=== PATIENT | male | born 1955 | race Caucasian/White ===

== ENCOUNTER 2022-12-03 18:30 | Inpatient (IN) | payer MEDICARE, OTHER, SELFPAY ==
[2022-12-03] VITALS (16 sets, daily range): BP systolic 104–142; BP diastolic 57–92; PULSE 110–143; RESP 16–40; TEMP 36.4–38.7; O2SAT 94–97; BMI 33.4; BMI 33.3; BMI 26.7
--- NOTE | 2022-12-03 18:15 | XR_ITS ---
PROCEDURE INFORMATION: Exam: XR Chest Exam date and time: 12/03/2022 6:34 PM Age: 66 years old Clinical indication: Angina; Other: Generalized; Patient HX: Chest pain and shortness of breath with cough. TECHNIQUE: Imaging protocol: Radiologic exam of the chest. Views: 1 view. COMPARISON: No relevant prior studies available. FINDINGS: Lungs: Infiltrate in the left perihilar region extending to the left lower lobe. Pleural spaces: Unremarkable. No pleural effusion. No pneumothorax. Heart/Mediastinum: Unremarkable. No cardiomegaly. Diaphragm: The right hemidiaphragm is moderately elevated. Bones/joints: Asymmetric marked arthritis left glenohumeral joint. IMPRESSION: Left perihilar and lower lobe infiltrate, suspicious for pneumonia.
--- NOTE | 2022-12-03 18:20 | ECG_ITS ---
APPROVED REPORT Exam: Resting ECG HR:136 bpm ECG Measurements Heart Rate 136 AXES PA 136 P 40 QRSd 91 QRS 75 QT 303 T 62 QTc 383 Conclusion SINUS TACHYCARDIA WITH OCCASIONAL ECTOPIC PREMATURE COMPLEXES MODERATE ST DEPRESSION [0.05+ mV ST DEPRESSION] ABNORMAL ECG UNCONFIRMED REPORT Electronically signed by : Jonathan Shukla MD 12/04/2022 14:21:30
[2022-12-03 18:28] LABS: Chloride 100 mmol/L (98-107); Potassium 4.2 mmoL/L (3.5-5.1); Sodium 136 mmol/L (136-145)
[2022-12-03 18:31] LABS: Anion Gap 21.2 mEq/L (5-15); Blood Urea Nitrogen 27 mg/dl (9-20); Calcium 9.1 mg/dl (8.4-10.2); Carbon Dioxide 19 mmol/L (22.0-30.0); Creatinine Clearance Estimated 53 mL/min (50-200); Estimated Glomerular Filt Rate 35 ml/min (>60); GFR (African American) 43 ML/MIN (>60); Glucose 283 mg/dl (74-100)
--- NOTE | 2022-12-03 18:33 | HMH.PHAINT ---
Spoke to [facility] for dosing. Vancomycin 2g placed to MAR per pharmacist
[2022-12-03 18:36] LABS: Magnesium 2.1 mg/dl (1.6-2.3)
[2022-12-03 18:40] LABS: Basophils # 0.1 K/mm3 (0-0.2); Basophils % 0.3 % (0.1-2.0); Eosinophils % 0.2 % (0.1-12.0); Hematocrit 49.1 % (42.0-52.0); Lymphocytes # 0.7 K/mm3 (0.7-4.5); Lymphocytes % 3.3 % (10-50); Mean Corpuscular HGB Conc 32.6 g/dL (31.8-35.4); Mean Corpuscular Hemoglobin 34.8 pg (27.0-31.2); Mean Corpuscular Volume 106.6 fl (80-94); Mean Platelet Volume 8.9 fl (7.4-10.4); Monocytes # 0.9 K/mm3 (0.1-1.0); Monocytes % 4.2 % (1.7-9.3); NT Pro Brain Natriuretic Pep. 641 pg/mL (0-125); Neutrophils # 18.7 K/mm3 (1.8-7.8); Platelet Count 306 K/mm3 (142-424); Red Blood Count 4.61 M/mm3 (4.60-6.20); Red Cell Distribution Width 12.4 % (11.5-17.5); White Blood Count 20.4 K/mm3 (4.8-10.8)
[2022-12-03 18:40] LABS: Coronavirus 19, PCR Not Detected (NotDetected); Influenza A, PCR Not Detected (NotDetected); Influenza B, PCR Not Detected (NotDetected)
[2022-12-03 18:42] LABS: MANUAL DIFFERENTIAL MANUAL DIFFERENTIAL (MANUAL DIFF)
[2022-12-03 18:43] LABS: Troponin I 0.03 ng/ml (0.00-0.034)
[2022-12-03 19:10] LABS: ABG Base Excess -5.3 mmol/L (-2.4-2.3); ABG Oxygen Saturation 99 % (90-100); ABG PCO2 35.4 mmhg (35.0-45.0); ABG PH 7.37 mmol/L (7.35-7.45); ABG PO2 123.4 mmhg (80-100); ABG TCO2 21.1 mmhg (23-27); Oxygen 100 %
[2022-12-03 19:11] LABS: Allen's Test Acceptable; Source Left Radial
--- NOTE | 2022-12-03 19:15 | PC.NURSE ---
Pt signed [facility] refusal [facility], pt advised he Didn't think he could make the trip
[2022-12-03 19:21] LABS: Alanine Aminotransferase 33 U/L (12-78); Alkaline Phosphatase 121 U/L (38-126); Aspartate Amino Transferase 39 U/L (17-59); Bilirubin,Direct 0.6 mg/dl (0.0-0.4); Bilirubin,Indirect 0.3 mg/dL (0.0-0.9); Bilirubin,Total 0.9 mg/dl (0.2-1.3); Bilirubin,Unconjugated 0.3 mg/dL (0.0-1.1)
--- NOTE | 2022-12-03 19:21 | PC.NURSE ---
Jermaine called for bed assignment
[2022-12-03 19:22] LABS: Albumin Level 3.6 g/dl (3.5-5.0); Total Protein,Serum 6.4 g/dl (6.3-8.2)
--- NOTE | 2022-12-03 19:22 | PC.NURSE ---
Hospitalist, Jaime, at BS
--- NOTE | 2022-12-03 19:29 | PC.NURSE ---
Jaime notified of [facility] of 5 and verified bed assignment
[2022-12-03 19:36] LABS: Lymphocytes % 11 % (10-50); Monocytes % 3 % (2-9); Neutrophils % 86 % (42-76); Platelet Estimate Normal; RBC Morphology Normal; Total Cells Counted 100
--- NOTE | 2022-12-03 19:42 | EXP.HP ---
History of Present Illness *Admission Date: 12/03/22 *Reason for visit:: Shortness of air, weakness, body aches and chills *History of present illness: Mr. Pantoja is a 66-year-old male with a past medical history of throat and lung cancer s/p robotic surgery and Tracheostomy at [facility], DM, HTN, BPH and Hypothyroidism. He presented to [facility] by EMS due to complaints of progressive weakness, shortness of air, body aches and chills x > 1 week duration. The information for the history and physical was taken from the patient's grand daughter Pauline who was at bedside and is the patient's next of kin. She reports that the patient has been ill for > 1 week with shortness of air, mucus via trach site increasing, weakness and chills and body aches. She reports that the patient refused to come to the ER until today. She reports that the day prior to presentation that the patient was unable to eat due to being ill. In the ER upon presentation the patient was found to have a Temperature of 101.6, HR was 143, RR 24, WBC was 20.4, on Cxray there was an infiltrate in the left perihilar region extending to the left lower lobe. While in the ER the patient had blood cultures x 2 drawn and he was given Cardizem 10 mg, given Vancomycin, Cefepime and Azithromycin. The patient will be admitted with initial impression of Sepsis. The plan of care was discussed with both the patient and grand daughter at bedside. Both verbalized understanding and agreement with the plan of care. [facility] Disclaimer: The information contained in this section may have been updated after the patient was seen, as this information can be updated by other users. Medical History BPH (benign prostatic hyperplasia) Chronic pain COPD (chronic obstructive pulmonary disease) Hypertension Hypothyroidism Tracheostomy in place Tracheostomy in place Family History (Updated 12/04/22 @ 06:18 by Farideh Sheth RN) No significant family history Social History Smoking Status: Current every day smoker alcohol intake: never current occupational status: unemployed Travel in the last 8 weeks: None Review of Systems Review of Systems Review of systems:: unable to obtain Meds Home Medications and Allergies Home Medications Medication Instructions Recorded Confirmed Type hydrocodone 5 mg-acetaminophen 325 1 tab PO Q4H PRN Pain 12/03/22 12/03/22 History mg tablet levothyroxine 88 mcg tablet 88 mcg PO DAILY Hypothyroidism 12/03/22 12/03/22 History lisinopril 40 mg tablet 40 mg PO DAILY Hypertension 12/03/22 12/03/22 History tamsulosin 0.4 mg capsule 0.4 mg PO DAILY BPH 12/03/22 12/03/22 History New Prescriptions to Start Prescriptions: Allergies Allergy/AdvReac Type Severity Reaction Status Date / Time No Known Allergies Allergy Unverified 10/27/17 15:07 Exam Data for Last 24 hours Vital signs and Labs for Last 24 Hours: Temp Pulse Resp BP Pulse Ox FiO2 101.6 F H 122 H 20 125/72 97 100 12/03/22 18:18 12/03/22 19:17 12/03/22 19:17 12/03/22 19:17 12/03/22 19:17 12/03/22 19:12 Laboratory Results - last 24 hr 12/03/22 18:14: WBC 20.4 H*, RBC 4.61, Hgb 16.0, Hct 49.1, MCV 106.6 H, MCH 34.8 H, MCHC 32.6, RDW 12.4, Plt Count 306, MPV 8.9, Neut % (Auto) 92.0 H, Lymph % (Auto) 3.3 L, [place] % (Auto) 4.2, Eos % (Auto) 0.2, Baso % (Auto) 0.3, Neut # (Auto) 18.7 H, Lymph # (Auto) 0.7, [place] # (Auto) 0.9, Eos # (Auto) 0.0, Baso # (Auto) 0.1, Total Counted 100, Neutrophils % (Manual) 86 H, Lymphocytes % (Manual) 11, Monocytes % (Manual) 3, Platelet Estimate Normal, RBC Morphology Normal 12/03/22 18:14: Sodium 136, Potassium 4.2, Chloride 100, Carbon Dioxide 19 L, Anion Gap 21.2 H, BUN 27 H, Creatinine 1.90 H, Estimated Creat Clear 53, Estimated GFR 35 L, Est GFR ( Amer) 43 L, Glucose 283 H, Calcium 9.1,
--- NOTE | 2022-12-03 19:45 | HMH.EDGENADL ---
Discharge Plan Disposition Patient Disposition: Admitted As Inpatient Condition: Fair Clinical Impressions Clinical Impression: Septic shock, DANA (acute kidney injury), Acute hypoxemic respiratory failure Pneumonia Qualifiers: Pneumonia type: due to unspecified organism Laterality: left Lung location: unspecified part of lung Qualified Code(s): J18.9 - Pneumonia, unspecified organism Discharge ED Provider: Bobbi Park General Adult HPI General Chief complaint: Arrhythmia/Palpitations Stated complaint: Resp Distress Time Seen by Provider: 12/03/22 18:34 Mode of Arrival: EMS Source of Information: Relative and EMS Limitations: No Limitations Description of Symptoms (Recalled from ER Triage Doc. by RN): EMS arrived after family called for difficulty breathing. Patient was SVT 160-170. EMS attempted vasovagal without results, and then administered 6mg IVP Adenosine with 500mL NS 0.9%. Patient down to 130's and appeared to stay in Afib RVR. Arrives here with bilateral AC 18g IV. History of Present Illness HPI narrative: This patient is a 66-year-old male presenting to the emergency department for evaluation with concern for shortness of breath and generalized weakness. According to the patient's granddaughter, he has been sick for approximately a week now. He was refused to come to the emergency department until today. When she got to his house, she could not even get him out of the bathroom, so EMS was called. On their arrival, he was noted have a heart rate in the 180s and he was in respiratory distress. He has a history of laryngectomy for history of cancer, but he does not typically have a cannula in his stoma. Given his high heart rate, given adenosine, and they state that his heart rate slowed down to the 140s. They also given 500 cc of IV fluids. On their initial EKG, he was noted to have possible atrial fibrillation with RVR. Upon arrival, he complains of shortness of breath and fatigue. He is also extremely diaphoretic. His granddaughter reports that he gets pneumonia frequently, and this is similar to his prior presentations of pneumonia. History is limited from patient given his hard of hearing and he is in respiratory distress with history of laryngectomy. Related Data Home Medications Medication Instructions Recorded Confirmed hydrocodone 5 mg-acetaminophen 325 1 tab PO Q4H PRN Pain 12/03/22 12/03/22 mg tablet levothyroxine 88 mcg tablet 88 mcg PO DAILY Hypothyroidism 12/03/22 12/03/22 lisinopril 40 mg tablet 40 mg PO DAILY Hypertension 12/03/22 12/03/22 tamsulosin 0.4 mg capsule 0.4 mg PO DAILY BPH 12/03/22 12/03/22 Allergies Allergy/AdvReac Type Severity Reaction Status Date / Time No Known Allergies Allergy Unverified 10/27/17 15:07 [facility] Disclaimer: The information contained in this section may have been updated after the patient was seen, as this information can be updated by other users. 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 Significantly diaphoretic. Head Head exam: atraumatic and normocephalic Eye Eye exam: Present normal appearance, PERRL and EOMI ENT ENT exam: Present mucous membranes dry Neck Neck exam: Present other (Well-healed tracheostomy) Chest Chest inspection: Present normal inspection and symmetric chest wall rise Respiratory Respiratory exam: Present respiratory distres
--- NOTE | 2022-12-03 19:50 | PC.NURSE ---
Attempted to call report to 2nd floor. No answer at this time
--- NOTE | 2022-12-03 20:36 | PC.NURSE ---
Pt arrived to the floor via stretcher @ 2034.
--- NOTE | 2022-12-03 20:45 | PC.NURSE ---
Patient arrived to the floor, A&Ox4. Patient is SOB at rest, respirations were labored and patient seemed to be in distress. satting in the 90's on 8L 35% 02 on a trach collar. Notified hospitalist of patients breathing. Orders received to start a fluid bolus. Patient is receiving IV abx. Denies any complaints of pain at this time.
[2022-12-03 21:03] LABS: POC Glucose,Bedside 280 (70-110)
[2022-12-03 21:05] LABS: Procalcitonin 11.9 ng/mL (0.0-2.0)
--- NOTE | 2022-12-03 21:22 | PC.NURSE ---
notified yong hospitalist of patients heart rate sustaining 128-135. orders were put in to receive iv fluids. patient receving bolus at this time.
[2022-12-03 21:58] LABS: Troponin I 0.04 ng/ml (0.00-0.034)
--- NOTE | 2022-12-03 22:00 | PC.NURSE ---
Discussed home medications with pharmacist from night watch. One of the pill bottles didn't have a label on it. Pharmacist was able to clarify what the medication was. Counted the narcotic and verified with another nurse and patient. Meds are locked up in patient drawer. Will pass on to day shift.
[2022-12-03 22:48] LABS: Reflex Lactic Add Lactic Reflex
[2022-12-03 23:26] LABS: Lactic Acid Follow Up (RFLX 1) 3.5 mmol/L (0.7-2.1)
[2022-12-04] VITALS (11 sets, daily range): BP systolic 121–141; BP diastolic 70–81; PULSE 71–117; RESP 28–96; TEMP 36.3–36.9; O2SAT 93–98; BMI 26.6
[2022-12-04 01:01] LABS: Reflex Lactic (2 hrs) Add Lactic Reflex
[2022-12-04 01:20] LABS: Lactic Acid Follow up (RFLX 2) 3.7 mmol/L (0.7-2.1)
[2022-12-04 01:29] LABS: Troponin I 0.04 ng/ml (0.00-0.034)
--- NOTE | 2022-12-04 02:02 | EXP.SEPSISRE ---
[facility] Tissue Perfusion Eval Sepsis Re-Evaluation Performed: Yes Date Performed: 12/03/22 Time Performed: 22:00
[2022-12-04 05:33] LABS: POC Glucose,Bedside 224 (70-110)
[2022-12-04 07:39] LABS: Lymphocytes # 0.7 K/mm3 (0.7-4.5); Red Cell Distribution Width 12.5 % (11.5-17.5)
[2022-12-04 07:45] LABS: Basophils # 0.1 K/mm3 (0-0.2); Basophils % 0.3 % (0.1-2.0); Eosinophils % 0.1 % (0.1-12.0); Hematocrit 44.3 % (42.0-52.0); Lymphocytes % 3.5 % (10-50); Mean Corpuscular HGB Conc 31.7 g/dL (31.8-35.4); Mean Corpuscular Volume 107.2 fl (80-94); Mean Platelet Volume 9.3 fl (7.4-10.4); Monocytes # 0.4 K/mm3 (0.1-1.0); Monocytes % 2.3 % (1.7-9.3); Neutrophils # 17.8 K/mm3 (1.8-7.8); Neutrophils % 93.8 % (37.0-80.0); Platelet Count 290 K/mm3 (142-424); Red Blood Count 4.13 M/mm3 (4.60-6.20)
[2022-12-04 07:46] LABS: Hemoglobin 14.1 g/dL (14.1-18.0); MANUAL DIFFERENTIAL MANUAL DIFFERENTIAL (MANUAL DIFF)
--- NOTE | 2022-12-04 07:50 | EXP.PHA.CONS ---
Pharmacy Consult Date: 12/04/22 Time: 07:50 Referring provider: DR. ALBRIGHT Reason for Consult:: VANCOMYCIN DOSING Allergies Allergy/AdvReac Type Severity Reaction Status Date / Time No Known Allergies Allergy Unverified 10/27/17 15:07 Home Medications Medication Instructions Recorded Confirmed Type hydrocodone 5 mg-acetaminophen 325 1 tab PO Q4H PRN Pain 12/03/22 12/03/22 History mg tablet levothyroxine 88 mcg tablet 88 mcg PO DAILY Hypothyroidism 12/03/22 12/03/22 History lisinopril 40 mg tablet 40 mg PO DAILY Hypertension 12/03/22 12/03/22 History tamsulosin 0.4 mg capsule 0.4 mg PO DAILY BPH 12/03/22 12/03/22 History New Prescriptions to Start Prescriptions: Height: 1.78 m Weight: 84.595 kg Laboratory Results:: Laboratory Results - last 24 hr 12/03/22 18:14: WBC 20.4 H*, RBC 4.61, Hgb 16.0, Hct 49.1, MCV 106.6 H, MCH 34.8 H, MCHC 32.6, RDW 12.4, Plt Count 306, MPV 8.9, Neut % (Auto) 92.0 H, Lymph % (Auto) 3.3 L, [place] % (Auto) 4.2, Eos % (Auto) 0.2, Baso % (Auto) 0.3, Neut # (Auto) 18.7 H, Lymph # (Auto) 0.7, [place] # (Auto) 0.9, Eos # (Auto) 0.0, Baso # (Auto) 0.1, Total Counted 100, Neutrophils % (Manual) 86 H, Lymphocytes % (Manual) 11, Monocytes % (Manual) 3, Platelet Estimate Normal, RBC Morphology Normal 12/03/22 18:14: Sodium 136, Potassium 4.2, Chloride 100, Carbon Dioxide 19 L, Anion Gap 21.2 H, BUN 27 H, Creatinine 1.90 H, Estimated Creat Clear 53, Estimated GFR 35 L, Est GFR ( Amer) 43 L, Glucose 283 H, Calcium 9.1, Troponin I 0.03, NT-Pro-B Natriuret Pep 641 H 12/03/22 18:14: Total Bilirubin 0.9, Direct Bilirubin 0.6 H, Conjugated Bilirubin 0.0, Indirect Bilirubin 0.3, Unconjugated Bilirubin 0.3, AST 39, ALT 33, Alkaline Phosphatase 121, Total Protein 6.4, Albumin 3.6 12/03/22 18:14: Magnesium 2.1 12/03/22 18:14: Procalcitonin 11.9 H 12/03/22 18:19: SARS-CoV-2 (PCR) Not detected, Influenza A Untype (PCR) Not detected, Influenza Type B (PCR) Not detected 12/03/22 18:25: Lactate 5.0 H 12/03/22 19:09: Specimen Source Left radial, O2 % 100, ABG pH 7.37, ABG pCO2 35.4, ABG pO2 123.4 H, ABG HCO3 20.0 L, ABG Total CO2 21.1 L, ABG O2 Saturation 99, ABG Base Excess -5.3 L, Sunil Test Acceptable 12/03/22 20:50: POC Glucose 280 H 12/03/22 21:24: Troponin I 0.04 H 12/03/22 23:10: Lactate 3.5 H 12/04/22 00:55: Troponin I 0.04 H 12/04/22 00:55: Lactate 3.7 H 12/04/22 05:26: POC Glucose 224 H 12/04/22 06:28: WBC 19.0 H, RBC 4.13 L, Hgb 14.1 D, Hct 44.3, MCV 107.2 H, MCH 34.0 H, MCHC 31.7 L, RDW 12.5, Plt Count 290, MPV 9.3, Neut % (Auto) 93.8 H, Lymph % (Auto) 3.5 L, [place] % (Auto) 2.3, Eos % (Auto) 0.1, Baso % (Auto) 0.3, Neut # (Auto) 17.8 H, Lymph # (Auto) 0.7, [place] # (Auto) 0.4, Eos # (Auto) 0.0, Baso # (Auto) 0.1 12/04/22 06:28: Lactate 2.0 Medical History: Medical History (Updated 12/03/22 @ 20:14 by Bobbi Park DO) BPH (benign prostatic hyperplasia) Chronic pain COPD (chronic obstructive pulmonary disease) Hypertension Hypothyroidism 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 Drug selected: Vancomycin Loading dose (mg): 0 Vd (liters): 72.2 (factor used: 0.85 L/kg) Jakob (hr-1): 0.036 Half life (hrs): 19.25 Recommended dose: 1500 mg Interval: 24 hrs Infusion time (hrs): 2.0 Predicted peak (mcg/mL): 34.6 Predicted trough (mcg/mL): 15.67 Total body weight is being used for vancomycin dosing. Recommendations: PATIENT RECEIVED VANCOMYCIN 2000 MG X1 DOSE OVERNIGHT. Recommend continuing with Vancomycin 1500 mg q 24 hrs with an ex
[2022-12-04 08:05] LABS: Procalcitonin 35.2 ng/mL (0.0-2.0)
[2022-12-04 08:16] LABS: Troponin I 0.02 ng/ml (0.00-0.034)
[2022-12-04 08:21] LABS: Hemoglobin A1C 7.9 % (4.0-6.0)
--- NOTE | 2022-12-04 08:36 | EXP.PHA.CONS ---
Pharmacy Consult Date: 12/04/22 Time: 08:36 Referring provider: DR ALBRIGHT Reason for Consult:: VANCOMYCIN DOSING CONSULT Allergies Allergy/AdvReac Type Severity Reaction Status Date / Time No Known Allergies Allergy Unverified 10/27/17 15:07 Home Medications Medication Instructions Recorded Confirmed Type hydrocodone 5 mg-acetaminophen 325 1 tab PO Q4H PRN Pain 12/03/22 12/03/22 History mg tablet levothyroxine 88 mcg tablet 88 mcg PO DAILY Hypothyroidism 12/03/22 12/03/22 History lisinopril 40 mg tablet 40 mg PO DAILY Hypertension 12/03/22 12/03/22 History tamsulosin 0.4 mg capsule 0.4 mg PO DAILY BPH 12/03/22 12/03/22 History New Prescriptions to Start Prescriptions: Height: 1.78 m Weight: 84.595 kg Laboratory Results:: Laboratory Results - last 24 hr 12/03/22 18:14: WBC 20.4 H*, RBC 4.61, Hgb 16.0, Hct 49.1, MCV 106.6 H, MCH 34.8 H, MCHC 32.6, RDW 12.4, Plt Count 306, MPV 8.9, Neut % (Auto) 92.0 H, Lymph % (Auto) 3.3 L, [place] % (Auto) 4.2, Eos % (Auto) 0.2, Baso % (Auto) 0.3, Neut # (Auto) 18.7 H, Lymph # (Auto) 0.7, [place] # (Auto) 0.9, Eos # (Auto) 0.0, Baso # (Auto) 0.1, Total Counted 100, Neutrophils % (Manual) 86 H, Lymphocytes % (Manual) 11, Monocytes % (Manual) 3, Platelet Estimate Normal, RBC Morphology Normal 12/03/22 18:14: Sodium 136, Potassium 4.2, Chloride 100, Carbon Dioxide 19 L, Anion Gap 21.2 H, BUN 27 H, Creatinine 1.90 H, Estimated Creat Clear 53, Estimated GFR 35 L, Est GFR ( Amer) 43 L, Glucose 283 H, Calcium 9.1, Troponin I 0.03, NT-Pro-B Natriuret Pep 641 H 12/03/22 18:14: Total Bilirubin 0.9, Direct Bilirubin 0.6 H, Conjugated Bilirubin 0.0, Indirect Bilirubin 0.3, Unconjugated Bilirubin 0.3, AST 39, ALT 33, Alkaline Phosphatase 121, Total Protein 6.4, Albumin 3.6 12/03/22 18:14: Magnesium 2.1 12/03/22 18:14: Procalcitonin 11.9 H 12/03/22 18:19: SARS-CoV-2 (PCR) Not detected, Influenza A Untype (PCR) Not detected, Influenza Type B (PCR) Not detected 12/03/22 18:25: Lactate 5.0 H 12/03/22 19:09: Specimen Source Left radial, O2 % 100, ABG pH 7.37, ABG pCO2 35.4, ABG pO2 123.4 H, ABG HCO3 20.0 L, ABG Total CO2 21.1 L, ABG O2 Saturation 99, ABG Base Excess -5.3 L, Sunil Test Acceptable 12/03/22 20:50: POC Glucose 280 H 12/03/22 21:24: Troponin I 0.04 H 12/03/22 23:10: Lactate 3.5 H 12/04/22 00:55: Troponin I 0.04 H 12/04/22 00:55: Lactate 3.7 H 12/04/22 05:26: POC Glucose 224 H 12/04/22 06:11: Procalcitonin 35.2 H 12/04/22 06:28: Hemoglobin A1c 7.9 H 12/04/22 06:28: WBC 19.0 H, RBC 4.13 L, Hgb 14.1 D, Hct 44.3, MCV 107.2 H, MCH 34.0 H, MCHC 31.7 L, RDW 12.5, Plt Count 290, MPV 9.3, Neut % (Auto) 93.8 H, Lymph % (Auto) 3.5 L, [place] % (Auto) 2.3, Eos % (Auto) 0.1, Baso % (Auto) 0.3, Neut # (Auto) 17.8 H, Lymph # (Auto) 0.7, [place] # (Auto) 0.4, Eos # (Auto) 0.0, Baso # (Auto) 0.1 12/04/22 06:28: Lactate 2.0 12/04/22 06:28: Troponin I 0.02 Medical History: Medical History (Updated 12/03/22 @ 20:14 by Bobbi Park DO) BPH (benign prostatic hyperplasia) Chronic pain COPD (chronic obstructive pulmonary disease) Hypertension Hypothyroidism Tracheostomy in place Tracheostomy in place Assessment and Plan Assessment and plan all Dx Assessment and Plan for all problems:: Pharmacokinetic dosing service Objective: Age: 66 yo Serum creatinine: 1.9 mg/dL Height: 70.0 Inches Weight (kg): 84.595 Diagnosis: PNEUMONIA Assessment: IBW (kg): 73.00 Dosing wt(kg): 84.595 Estimated Creatinine clearance (ml/min): 38.4 CRCL method: Cockcroft and Gault using ibw(default). Drug selected: Vancomycin Loading dose (mg): 2000 MG Vd (liters): 59.2 (factor used: 0.7 L/kg) Jakob (hr-1): 0.036 Half life (hrs): 19.25 CLvanco=?? 2.131 L/hr Recommended dose: 1250 mg Interval: 24 hrs Infusion time (hrs): 2.0 Predicted peak (mcg/mL): 35.2 Predicted trough (mcg/mL): 15.
[2022-12-04 08:37] LABS: Lymphocytes % 4 % (10-50); Macrocytosis 2+; Monocytes % 3 % (2-9); Neutrophils % 93 % (42-76); Platelet Estimate Normal; Total Cells Counted 100
--- NOTE | 2022-12-04 08:45 | EXP.ACUTE.PN ---
Subjective *Date: 12/04/22 *Time: 08:45 Interval history: Patient resting comfortably this morning. Improvement in vitals. Still remains tachycardic but decreasing to low 100s. Stable on trach collar. Afebrile. No nausea, vomiting, chest pain, confusion. Medical Exam Vital signs and Labs for Last 24 Hours: Vital Signs Temp Pulse Pulse Resp BP BP Pulse Ox 12/04/22 07:33 98.1 F 112 H 34 H 132/80 95 12/04/22 04:00 90 12/04/22 03:54 97.3 F L 113 H 36 H 141/76 H 97 12/03/22 23:55 97 12/04/22 00:00 100 H 12/03/22 23:48 98.4 F 112 H 40 H 137/92 H 97 12/03/22 20:00 118 H 12/03/22 21:21 110 H 12/03/22 20:44 97.5 F L 117 H 32 H 110/71 95 12/03/22 20:07 117 H 18 116/68 95 12/03/22 20:02 119 H 16 106/67 L 96 12/03/22 19:57 120 H 22 106/69 L 94 L 12/03/22 19:47 121 H 20 104/68 L 94 L 12/03/22 19:42 122 H 18 113/70 94 L 12/03/22 19:32 127 H 22 117/57 L 94 L 12/03/22 19:59 100 F H 118 H 21 106/69 L 12/03/22 19:17 122 H 20 125/72 97 12/03/22 19:00 126 H 20 116/70 97 12/03/22 19:12 133 H 12/03/22 19:12 132 H 12/03/22 19:12 96 12/03/22 18:18 101.6 F H 143 H 24 142/84 H 95 FiO2 12/04/22 07:33 12/04/22 04:00 12/04/22 03:54 12/03/22 23:55 35 12/04/22 00:00 12/03/22 23:48 12/03/22 20:00 35 12/03/22 21:21 12/03/22 20:44 8 12/03/22 20:07 12/03/22 20:02 12/03/22 19:57 12/03/22 19:47 12/03/22 19:42 12/03/22 19:32 12/03/22 19:59 12/03/22 19:17 12/03/22 19:00 12/03/22 19:12 12/03/22 19:12 12/03/22 19:12 100 12/03/22 18:18 Intake and Output 12/03/22 12/04/22 12/04/22 23:59 07:59 15:59 Intake Total 1979 Output Total 100 / 100 650 / 650 Balance -100 / 1400 1330 / 1330 Intake: Intake, Oral Amount 480 / 480 Intake, Total IV Amount 1500 / 1500 0.9 % Sodium Chloride 1,000 ml 1000 / 1000 @ 999 mls/hr IV .Q1H1M [facility] Rx#: [id number] 0.9 % Sodium Chloride 500 ml @ 500 / 500 999 mls/hr IV .Q31M [facility] Rx#: [id number] Output: Output, Urine Amount 100 / 100 650 / 650 Other: Number of Voids 2 Weight 84.595 kg 84.595 kg 84.595 kg Patient Weight 12/04/22 23:59 Weight 84.595 kg Laboratory Results - last 24 hr 12/03/22 18:14: WBC 20.4 H*, RBC 4.61, Hgb 16.0, Hct 49.1, MCV 106.6 H, MCH 34.8 H, MCHC 32.6, RDW 12.4, Plt Count 306, MPV 8.9, Neut % (Auto) 92.0 H, Lymph % (Auto) 3.3 L, [place] % (Auto) 4.2, Eos % (Auto) 0.2, Baso % (Auto) 0.3, Neut # (Auto) 18.7 H, Lymph # (Auto) 0.7, [place] # (Auto) 0.9, Eos # (Auto) 0.0, Baso # (Auto) 0.1, Total Counted 100, Neutrophils % (Manual) 86 H, Lymphocytes % (Manual) 11, Monocytes % (Manual) 3, Platelet Estimate Normal, RBC Morphology Normal 12/03/22 18:14: Sodium 136, Potassium 4.2, Chloride 100, Carbon Dioxide 19 L, Anion Gap 21.2 H, BUN 27 H, Creatinine 1.90 H, Estimated Creat Clear 53, Estimated GFR 35 L, Est GFR ( Amer) 43 L, Glucose 283 H, Calcium 9.1, Troponin I 0.03, NT-Pro-B Natriuret Pep 641 H 12/03/22 18:14: Total Bilirubin 0.9, Direct Bilirubin 0.6 H, Conjugated Bilirubin 0.0, Indirect Bilirubin 0.3, Unconjugated Bilirubin 0.3, AST 39, ALT 33, Alkaline Phosphatase 121, Total Protein 6.4, Albumin 3.6 12/03/22 18:14: Magnesium 2.1 12/03/22 18:14: Procalcitonin 11.9 H 12/03/22 18:19: SARS-CoV-2 (PCR) Not detected, Influenza A Untype (PCR) Not detected, Influenza Type B (PCR) Not detected 12/03/22 18:25: Lactate 5.0 H 12/03/22 19:09: Specimen Source Left radial, O2 % 100, ABG pH 7.37, ABG pCO2 35.4, ABG pO2 123.4 H, ABG HCO3 20.0 L, ABG Total CO2 21.1 L, ABG O2 Saturation 99, ABG Base Excess -5.3 L, Sunil Test Acceptable 12/03/22 20:50: POC Glucose 280 H 12/03/22 21:24: Troponin I 0.04 H 12/03/22 23:10: Lactate 3.5 H 12/04/22 00:55: Troponin I 0.04 H 12/04/22 00:55: Lactate 3.7 H 12/04/22 05:26: POC Glucose 224
[2022-12-04 09:11] LABS: Chloride 104 mmol/L (98-107); Potassium 4.6 mmoL/L (3.5-5.1); Sodium 135 mmol/L (136-145)
[2022-12-04 09:13] LABS: Alanine Aminotransferase 23 U/L (12-78); Aspartate Amino Transferase 51 U/L (17-59); Blood Urea Nitrogen 30 mg/dl (9-20); Creatinine Clearance Estimated 65 mL/min (50-200); Estimated Glomerular Filt Rate 55 ml/min (>60); GFR (African American) 66 ML/MIN (>60)
[2022-12-04 09:14] LABS: Albumin Level 2.9 g/dl (3.5-5.0); Albumin/Globulin Ratio 1.2 (1.1-1.8); Alkaline Phosphatase 70 U/L (38-126); Anion Gap 13.6 mEq/L (5-15); Bilirubin,Total 0.6 mg/dl (0.2-1.3); Calcium 8.1 mg/dl (8.4-10.2); Carbon Dioxide 22 mmol/L (22.0-30.0); Globulin 2.5 g/dL (1.3-3.2); Glucose 203 mg/dl (74-100); Total Protein,Serum 5.4 g/dl (6.3-8.2)
--- NOTE | 2022-12-04 09:15 | CARE MANAGER ---
Addendum entered by Keshia Woo RN 12/05/22 08:37: Contacted Lola at [place] and no beds available at this time. [place] phone number to transfer office [phone] Original Note: Patient initially declined being transferred to [place] hospital, but was unaware he would then be a self-pay because he has no secondary insurance. I contacted Sarika at [place] today and they currently do not have any beds available for transfer. She states to try again tomorrow. Also completed [facility] notification [id number] SHERON Carcamo
--- NOTE | 2022-12-04 11:19 | HMH.SLDYSPHA ---
Speech & Language Evaluation Speech/Language Dysphagia Evaluation Start: 12/04/22 10:55 Freq: ONCE Status: Active Protocol: Document 12/04/22 10:55 KENTON (Rec: 12/04/22 11:19 KENTON [id number]) Dysphagia Assess/Goals/Plan Assessment Date of Evaluation: 12/04/22 Evaluation Type Initial Certification Assessment/Problems Completed a clinical bedside swallow evaluation per MD order following aspiration concerns. Does Patient Qualify for Service Yes Qualify/Failure Comment Per pt history of recurrent pneumonia, he would benefit from further instrumental testing to assess the swallow via MBSS. At this time, he is refusing testing. OPTICIAN MANAGER will continue to f/u for continued analysis and education. Recommendations PHYSICIAN CERTIFICATION: The specified therapy services are required, authorized, and reviewed every 30 days. Diet Recommendations Normal Liquid Type Recommendations Normal/Thin SL Swallow Guidelines High aspiration risk Dysphagia Swallow Precautions/Strategies Sitting Upright (90 deg), Alternate Liquids/Solids Comment F/u x1, if pt continues refusal of skilled speech therapy services and instrumental testing; skilled speech therapy services will no longer be warranted 2' pt noncompliance. Plan Pt/Guardian verbally ack understanding Yes of dx/prognosis/goals G -code Required No STG-Other Comment/Non-Specific OPTICIAN MANAGER will provide further extensive education on aspiration risks and precautions and pt will demonstrate understanding via teachback method. Education Instructions provided Discussed assessment results with pt, nursing, dietcian, and care management all of which expressed understanding. OPTICIAN MANAGER also discussed pt noncompliance to complete further testing following education of aspiration risks to nursing and care management . Pt/Caregiver able to recall information Able to recall/restate
[2022-12-04 11:39] LABS: POC Glucose,Bedside 232 (70-110)
--- NOTE | 2022-12-04 12:05 | DIET.NUTRFU ---
LEAD PASTOR consulted to kristopher, patient refused MBSS, diet upgarded to regular, thin. Nursing to monitor diet tolerance. RD tried to interview and he was sleeping and then using bathroom. Will attempt again, hoping to see granddaughter today who maybe more reliable on information. Patient has expressed desire to leave already.
[2022-12-04 16:40] LABS: POC Glucose,Bedside 230 (70-110)
--- NOTE | 2022-12-04 17:21 | PC.NURSE ---
Pt is alert and oriented x4. He's rested in bed with his eyes closed intermittently t/o the shift. He remains at 8L on trach collar with oxygen sats measuring >92%. He's had a cough productive of thick green sputum. He's used a urinal at the bedside independently. Glucose was 232 and 230 at checks, insulin administered per SS. Tylenol administered once with favorable results for pt report of headache. Grand daughter has been to visit and updated on poc. No beds available at [facility] today but was notified that we will be updated again tomorrow. Bed is locked and in the lowest position, call light is within reach.
[2022-12-04 20:27] LABS: POC Glucose,Bedside 167 (70-110)
[2022-12-05] VITALS: BP 136/81; PULSE 99; RESP 20; TEMP 36.6; O2SAT 96
[2022-12-05 04:00] VITALS: BP 163/88; PULSE 96; RESP 28; TEMP 36.5; O2SAT 97; BMI 26.8
--- NOTE | 2022-12-05 05:40 | PC.NURSE ---
Pt is aox 4 and has oxygen on by trach collar 8 L. He has been using a urinal and and asked for some Tylenol for a headache this am. He is waiting for a bed at the [facility].
[2022-12-05 06:09] LABS: Basophils # 0.1 K/mm3 (0-0.2); Basophils % 0.3 % (0.1-2.0); Eosinophils # 0.1 K/mm3 (0.0-0.4); Eosinophils % 0.3 % (0.1-12.0); Hematocrit 41.7 % (42.0-52.0); Hemoglobin 13.1 g/dL (14.1-18.0); Lymphocytes % 5.3 % (10-50); Mean Corpuscular HGB Conc 31.5 g/dL (31.8-35.4); Mean Corpuscular Hemoglobin 33.6 pg (27.0-31.2); Mean Corpuscular Volume 106.8 fl (80-94); Monocytes # 0.7 K/mm3 (0.1-1.0); Monocytes % 3.8 % (1.7-9.3); Neutrophils # 16.1 K/mm3 (1.8-7.8); Neutrophils % 90.3 % (37.0-80.0); Platelet Count 278 K/mm3 (142-424); Red Cell Distribution Width 12.7 % (11.5-17.5); White Blood Count 17.8 K/mm3 (4.8-10.8)
[2022-12-05 06:10] LABS: Alanine Aminotransferase 27 U/L (12-78); Albumin Level 2.6 g/dl (3.5-5.0); Albumin/Globulin Ratio 1.1 (1.1-1.8); Alkaline Phosphatase 78 U/L (38-126); Anion Gap 9.2 mEq/L (5-15); Aspartate Amino Transferase 49 U/L (17-59); Bilirubin,Total 0.4 mg/dl (0.2-1.3); Blood Urea Nitrogen 31 mg/dl (9-20); Calcium 7.9 mg/dl (8.4-10.2); Carbon Dioxide 24 mmol/L (22.0-30.0); Chloride 105 mmol/L (98-107); Creatinine Clearance Estimated 77 mL/min (50-200); Estimated Glomerular Filt Rate 67 ml/min (>60); GFR (African American) 81 ML/MIN (>60); Globulin 2.3 g/dL (1.3-3.2); Glucose 148 mg/dl (74-100); Magnesium 2.3 mg/dl (1.6-2.3); Potassium 4.2 mmoL/L (3.5-5.1); Sodium 134 mmol/L (136-145); Total Protein,Serum 4.9 g/dl (6.3-8.2)
[2022-12-05 06:11] LABS: POC Glucose,Bedside 126 (70-110)
[2022-12-05 06:16] LABS: MANUAL DIFFERENTIAL MANUAL DIFFERENTIAL (MANUAL DIFF)
[2022-12-05 06:28] VITALS: PULSE 75; PULSE 78; O2SAT 95
[2022-12-05 07:32] LABS: Lymphocytes % 5 % (10-50); Monocytes % 9 % (2-9); Neutrophils % 86 % (42-76); Total Cells Counted 100
[2022-12-05 07:33] LABS: Platelet Estimate Normal; RBC Morphology Normal
[2022-12-05 08:00] VITALS: BP 132/78; PULSE 96; RESP 20; TEMP 36.3; O2SAT 95
--- NOTE | 2022-12-05 08:03 | PC.NURSE ---
Addendum entered by Matilda Chaidez RN 12/05/22 08:44: Sat 95% on 4 L per trach collar @ 0844. Original Note: 0740- Pt weaned to 6 L per trach collar, tolerated well. Sat remains in mid 90's. Pt then further weaned to 4 L, no s/s of resp distress.
--- NOTE | 2022-12-05 08:33 | PC.NURSE ---
Per case man. there is still no bed available at [facility] currently.
--- NOTE | 2022-12-05 09:14 | EXP.PHA.CONS ---
Pharmacy Consult Date: 12/05/22 Time: 09:14 Referring provider: DR. ALBRIGHT Reason for Consult:: VANCOMYCIN DOSE CHANGE Allergies Allergy/AdvReac Type Severity Reaction Status Date / Time No Known Allergies Allergy Unverified 10/27/17 15:07 Home Medications Medication Instructions Recorded Confirmed Type hydrocodone 5 mg-acetaminophen 325 1 tab PO Q4H PRN Pain 12/03/22 12/03/22 History mg tablet levothyroxine 88 mcg tablet 88 mcg PO DAILY Hypothyroidism 12/03/22 12/03/22 History lisinopril 40 mg tablet 40 mg PO DAILY Hypertension 12/03/22 12/03/22 History tamsulosin 0.4 mg capsule 0.4 mg PO DAILY BPH 12/03/22 12/03/22 History New Prescriptions to Start Prescriptions: Height: 1.78 m Weight: 85.094 kg Laboratory Results:: Laboratory Results - last 24 hr 12/04/22 06:27: Carbon Dioxide 22, Anion Gap 13.6, BUN 30 H, Creatinine 1.30 H D, Estimated Creat Clear 65, Estimated GFR 55 L, Est GFR ( Amer) 66 D, Glucose 203 H D, Calcium 8.1 L, Total Bilirubin 0.6, AST 51 D, ALT 23 D, Alkaline Phosphatase 70, Total Protein 5.4 L, Albumin 2.9 L D, Globulin 2.5, Albumin/Globulin Ratio 1.2 12/04/22 11:20: POC Glucose 232 H 12/04/22 16:32: POC Glucose 230 H 12/04/22 20:20: POC Glucose 167 H 12/05/22 05:44: WBC 17.8 H, RBC 3.90 L, Hgb 13.1 L, Hct 41.7 L, MCV 106.8 H, MCH 33.6 H, MCHC 31.5 L, RDW 12.7, Plt Count 278, MPV 9.0, Neut % (Auto) 90.3 H, Lymph % (Auto) 5.3 L, Ceiba % (Auto) 3.8, Eos % (Auto) 0.3, Baso % (Auto) 0.3, Neut # (Auto) 16.1 H, Lymph # (Auto) 1.0, Ceiba # (Auto) 0.7, Eos # (Auto) 0.1, Baso # (Auto) 0.1, Total Counted 100, Neutrophils % (Manual) 86 H, Lymphocytes % (Manual) 5 L, Monocytes % (Manual) 9, Platelet Estimate Normal, RBC Morphology Normal 12/05/22 05:44: Sodium 134 L, Potassium 4.2, Chloride 105, Carbon Dioxide 24, Anion Gap 9.2, BUN 31 H, Creatinine 1.10, Estimated Creat Clear 77, Estimated GFR 67, Est GFR ( Amer) 81 D, Glucose 148 H D, Calcium 7.9 L, Magnesium 2.3, Total Bilirubin 0.4, AST 49, ALT 27, Alkaline Phosphatase 78, Total Protein 4.9 L, Albumin 2.6 L D, Globulin 2.3, Albumin/Globulin Ratio 1.1 12/05/22 06:04: POC Glucose 126 H Medical History: Medical History (Updated 12/03/22 @ 20:14 by Bobbi Park DO) BPH (benign prostatic hyperplasia) Chronic pain COPD (chronic obstructive pulmonary disease) Hypertension Hypothyroidism Tracheostomy in place Tracheostomy in place Assessment and Plan Assessment and plan all Dx Assessment and Plan for all problems:: Pharmacokinetic dosing service Age: 66 yo Serum creatinine: 1.1 mg/dL Height: 70.1 Inches Weight (kg): 85 Assessment: IBW (kg): 73.23 Dosing wt(kg): 85 Estimated Creatinine clearance (ml/min): 66.6 CRCL method: Cockcroft and Gault using ibw(default). Drug selected: Vancomycin Loading dose (mg): 0 Vd (liters): 72.2 (factor used: 0.85 L/kg) Jakob (hr-1): 0.060 Half life (hrs): 11.55 Recommended dose: 1250 mg Interval: 12 hrs Infusion time (hrs): 2.0 Predicted peak (mcg/mL): 31.8 Predicted trough (mcg/mL): 17.45 Total body weight is being used for vancomycin dosing. Recommendations: PATIENT HAS BEEN RECEIVING VANCOMYCIN 1250 MG Q24H. WITH CHANGE IN CRCL, RECOMMEND Vancomycin 1250 mg q 12 hrs with an expected Cpeak of 31.8 mcg/ml and an expected Ctrough of 17.45 mcg/ml. ----Vanco only - ignore for aminoglycosides----- CLvanco= 4.33 L/hr AUC 0-24 /BIJAL Data: BIJAL 0.5 mcg/mL: AUC/BIJAL: 1154.7 BIJAL 1.0 mcg/mL: AUC/BIJAL: 577.4 --------- BIJAL 1.5 mcg/mL: AUC/BIJAL: 384.9 BIJAL 2.0 mcg/mL: AUC/BIJAL: 288.7
--- NOTE | 2022-12-05 09:54 | EXP.DC.SUM ---
General Admission date:: 12/03/22 Discharge date: 12/05/22 HPI HPI HPI: Mr. Pantoja is a 66-year-old male with a past medical history of throat and lung cancer s/p robotic surgery and Tracheostomy at [facility], DM, HTN, BPH and Hypothyroidism. He presented to [facility] by EMS due to complaints of progressive weakness, shortness of air, body aches and chills x > 1 week duration. The information for the history and physical was taken from the patient's grand daughter Pauline who was at bedside and is the patient's next of kin. She reports that the patient has been ill for > 1 week with shortness of air, mucus via trach site increasing, weakness and chills and body aches. She reports that the patient refused to come to the ER until today. She reports that the day prior to presentation that the patient was unable to eat due to being ill. In the ER upon presentation the patient was found to have a Temperature of 101.6, HR was 143, RR 24, WBC was 20.4, on Cxray there was an infiltrate in the left perihilar region extending to the left lower lobe. While in the ER the patient had blood cultures x 2 drawn and he was given Cardizem 10 mg, given Vancomycin, Cefepime and Azithromycin. The patient will be admitted with initial impression of Sepsis. The plan of care was discussed with both the patient and grand daughter at bedside. Both verbalized understanding and agreement with the plan of care. Hospital Course Hospital Course Hospital Course: 66-year-old male with reported history of Tracheostomy Placement and Robotic Surgery at due to Lung and Throat Cancer in 2011, DM, HTN, BPH, Hypothyroidism presents with greater than 1 week illness of shortness of breath, excessive sputum at trach site, weakness, chills and body aches. Problems addressed during hospitalization as follows: - Sepsis (POA) -Lobar pneumonia Sepsis criteria met on admission is:? Temperature, 101.6, HR 143, RR 24, WBC 20.4, Cxray with infiltrate in the left perihilar region extending to the left lower lobe, Lactic Acid 5. Cultures obtained. No growth on blood or sputum cultures. Patient was negative for COVID and flu. Chest imaging positive for pneumonia in left perihilar region and left lower lobe. Initiated for oxygen and IV antibiotics. Lactic acid levels normalized with IV fluids. Continue broad-spectrum antibiotics with vancomycin, cefepime, azithromycin. Weaned to Levaquin at discharge to complete 10-day total course. Completed 3 days of azithromycin during admission. Plan to continue nebulizer at home. Patient states he has a nebulizer and solution, he just needs tubing, provided at discharge. Able to wean to room air by day of discharge, no further oxygen requirement. Symptoms defervesced and had significant clinical improvement. Meeting criteria for discharge home. - DANA Reports not able to eat or drink, consistent with prerenal on admission. Creatinine normalized to 1.1 by day of discharge. - Diabetes Per history from family, A1c 7.9. Resume home diabetes regimen at discharge. Treated with sliding scale insulin during admission. - Hypertension: Received Cardizem in the ER x1. Resume home regimen with normalization of kidney function. - BPH: Continue patient's Flomax - Hypothyroidism: Will continue patient's home dose of Levothyroxine - Thrush: Nystatin started for thrush. Discharged home with prescription for 1 more week. Patient showed significant improvement. At baseline level of function. Stable for discharge home. Recommend close follow-up with his PCP at the [facility] within the next 1 to 2 weeks for further evaluation. Exam Data for Last 24 hours Vital signs and Labs for Last 24 Hours: Temp Pulse Resp BP Pulse Ox FiO2 97.4 F L 96 H 20 132/78 95 35 12/05/22 08:00 12/05/22 08:00 12/05/22 08:00 12/05/22 08:00 12/05/22 08:00 12/05/22 06:28 Laboratory Results - last 24 hr 12/04/22 11:20: POC Glucose 232 H
--- NOTE | 2022-12-05 10:40 | PC.NURSE ---
tech note; pt o2 sat is 98 on room air with ambulation.
[2022-12-05 11:51] VITALS: RESP 16
[2022-12-05 11:55] LABS: POC Glucose,Bedside 136 (70-110)
[2022-12-05 12:00] VITALS: BP 140/85; PULSE 93; RESP 22; TEMP 36.3; O2SAT 94
--- NOTE | 2022-12-05 13:57 | PC.NURSE ---
Updated family on plan of care. Grand-daughter will be here to get pt when she gets off work @ 1600.
--- NOTE | 2022-12-08 13:11 | CARE MANAGER ---
Attempted post-discharge phone interview, no answer. Left message for return call.
[2022-12-08 16:36] LABS: Body Fluid Culture, Sterile Not indicated. (.); Legionella pneumophila Urinary Negative (Negative); Organism ID Not indicated. (.); Specimen Source Urine (.); Streptococcus pneumoniae Ag Negative (Negative)
[2022-12-13 04:39] LABS: MRSA DNA PCR Negative
== END 2022-12-05 16:59 | disposition home or self-care (01) | DRG 871 ==
LOC: ER 18:55 → 2ND 19:47
PROVIDERS: Nurse Practitioner Family; Admitting Provider Internal Medicine Adolescent Medicine; Emergency Provider Emergency Medicine; Visit Provider Internal Medicine Adolescent Medicine
DX: A41.9 Sepsis, unspecified organism (principal); J18.1 Lobar pneumonia, unspecified organism; J96.00 Acute respiratory failure, unspecified whether with hypoxia or hypercapnia; N17.9 Acute kidney failure, unspecified; B37.0 Candidal stomatitis; J44.0 Chronic obstructive pulmonary disease with (acute) lower respiratory infection; Z93.0 Tracheostomy status; E11.9 Type 2 diabetes mellitus without complications; I10 Essential (primary) hypertension; N40.0 Benign prostatic hyperplasia without lower urinary tract symptoms; Z85.819 Personal history of malignant neoplasm of unspecified site of lip, oral cavity, and pharynx
CPT/HCPCS: 36415; 71045; 80048; 80053; 80076; 82803; 82962; 83036; 83605; 83735; 83880; 84145; 84484; 85007; 85025; 87040; 87070; 87205; 87641; 87899; 92610; 93005; 94640; 94760; 94761; 99291; C9803; J0456; J1956; J3370; U0003; U0005